=== PATIENT | female | born 1965 | race Caucasian/White ===

== ENCOUNTER 2019-06-12 17:08 | Observation (INO) | payer OTHER ==
[~2019-06-12] VITALS: Ht 165.1 cm; Wt 82.6 kg
[2019-06-12 17:29] VITALS: Ht 165.1 cm; Wt 82.6 kg
[2019-06-12 18:47] LABS: BASOPHIL % 0.9 % (0-2); PLATELET COUNT 383 x10^3mcL (130-400)
[2019-06-12 19:01] LABS: CALCIUM 8.4 mg/dL (8.5-10.1); CARBON DIOXIDE 29.3 mmol/L (21-32); CHLORIDE SERUM 101 mmol/L (98-107); CREATININE SERUM 0.8 mg/dL (0.6-1.0); GFR1 > 60 mL/min; GLUCOSE SERUM 98 mg/dL (74-106); POTASSIUM SERUM 3.8 mmol/L (3.5-5.1); SODIUM SERUM 137 mmol/L (136-145)
[2019-06-12 19:06] LABS: ALBUMIN 3.9 g/dL (3.4-5.0); ALKALINE PHOSPHATASE 68 U/L (46-116); ALT/SGPT 34 U/L (14-59); AST/SGOT 33 U/L (15-37); BILIRUBIN TOTAL 0.24 mg/dL (0.20-1.00); TOTAL PROTEIN, SERUM 7.6 g/dL (6.4-8.2)
[2019-06-12] MEDS ORDERED: ESCITALOPRAM10 M1 PO (21:03)
[2019-06-12] MEDS ORDERED: GABAPENTIN100 M2 (21:03)
[2019-06-12] MEDS ORDERED: ENDOCET1 TA4 PO (21:04)
[2019-06-12] MEDS ORDERED: IBUPROFEN400 MG PO (21:05)
[2019-06-13 00:23] VITALS: BP 132/57
[2019-06-13 04:51] VITALS: BP 122/62
[2019-06-13 07:11] LABS: BASOPHIL % 0.6 % (0-2); PLATELET COUNT 348 x10^3mcL (130-400)
[2019-06-13 07:13] LABS: RED CELL DISTRIBUTION WIDTH 17.1 % (11.5-14.5)
[2019-06-13 07:34] LABS: CALCIUM 8.2 mg/dL (8.5-10.1); CARBON DIOXIDE 27.5 mmol/L (21-32); CHLORIDE SERUM 102 mmol/L (98-107); CREATININE SERUM 0.6 mg/dL (0.6-1.0); GFR1 > 60 mL/min; GLUCOSE SERUM 94 mg/dL (74-106); SODIUM SERUM 137 mmol/L (136-145)
[2019-06-13 08:39] VITALS: BP 122/40
[2019-06-13 12:36] VITALS: BP 128/63
== END 2019-06-13 14:49 | disposition home or self-care (01) ==
LOC: ED 17:08 → DU 22:38
PROVIDERS: Emergency Medicine; Internal Medicine; ADMIT Internal Medicine Pulmonary Disease
DX: R07.89 Other chest pain (principal); F41.0 Panic disorder [episodic paroxysmal anxiety]; M54.9 Dorsalgia, unspecified; G89.29 Other chronic pain
CPT/HCPCS: G0378; J1885; J2060; J2405; Q0092

== ENCOUNTER 2020-02-18 15:49 | Observation (INO) | payer OTHER ==
[~2020-02-18] VITALS: Ht 162.6 cm; Wt 95.7 kg
[~2020-02-18 15:49] MED LIST: ENDOCET1 TA4 PO; ESCITALOPRAM10 M1 PO; GABAPENTIN100 M2; IBUPROFEN400 MG PO
[2020-02-18 15:58] VITALS: Ht 162.6 cm; Wt 95.7 kg
--- NOTE | 2020-02-18 16:01 | NUR ---
EKG IN PROGRESS.
[2020-02-18 17:04] LABS: BASOPHIL % 1.2 % (0-2); PLATELET COUNT 325 x10^3mcL (130-400)
[2020-02-18 17:05] LABS: RED CELL DISTRIBUTION WIDTH 15.6 % (11.5-14.5)
[2020-02-18 17:16] LABS: CALCIUM 8.8 mg/dL (8.5-10.1); CARBON DIOXIDE 38.1 mmol/L (21-32); CHLORIDE SERUM 97 mmol/L (98-107); GFR1 > 60 mL/min; GLUCOSE SERUM 115 mg/dL (74-106); SODIUM SERUM 137 mmol/L (136-145)
[2020-02-18 17:21] LABS: ALBUMIN 3.9 g/dL (3.4-5.0); ALKALINE PHOSPHATASE 74 U/L (46-116); ALT/SGPT 61 U/L (14-59); AST/SGOT 36 U/L (15-37); TOTAL PROTEIN, SERUM 7.7 g/dL (6.4-8.2)
--- NOTE | 2020-02-18 17:32 | NUR ---
PLACED IN BED 7 FOR EVAL.
--- NOTE | 2020-02-18 17:41 | NUR ---
PT BIB SON C/O CHEST PAIN 7/10 X 4DAYS THAT RADIATES TO JAW AND NECK. PER PT "I WAS SITTING DOWN TXTING AND I NOTICED THE PAIN BUT ITS WORSE NOW. I ALSO HAD A TOOTH INFECTION AND I TOOK ANITBIOTICS FOR IT SO THAT WHY I HAVE DIARRHEA". PT AAOX4, RESP E/U, PLACED ON FULL CM, NSR NOTED. MD SALAZAR AT BEDSIDE FOR EVAL AT THIS TIME. AWAITING FURTHER ORDERS. WILL CONTINUE TO MONITOR.
--- NOTE | 2020-02-18 18:04 | NUR ---
ASSISTED PT RESTROOM. PT AMBULATORY WITH STEADY GAIT AT THIS TIME. NO AD NOTED. WILL CONTINUE TO MONITOR.
[2020-02-18 18:08] LABS: LIPASE 103 IU/L (73-393)
[2020-02-18 18:09] LABS: CHOLESTEROL 275 mg/dL (<200); HDL CHOLESTEROL 89 mg/dL (40-60)
[2020-02-18 18:29] LABS: microscopic required? NO
[2020-02-18 18:51] LABS: urine erythrocyte NEGATIVE (NEGATIVE)
[2020-02-18 19:00] LABS: AMPHETAMINE QUAL UR NONE DETECTED (See below)
--- NOTE | 2020-02-18 19:00 | NUR ---
PT NOTED SITTING UPRIGHT IN ER LIZABETH TUCKER AT THIS TIME, NO AD NOTED. WILL CONTINUE TO MONITOR.
--- NOTE | 2020-02-18 19:07 | NUR ---
REPORT GIVEN TO TERESITA HOGUE. RN TO ASSUME CARE OF PT AT THIS TIME.
--- NOTE | 2020-02-18 19:42 | NUR ---
PT RESTING IN BED USING PHONE WITH NO SIGNS OF DISTRESS.
--- NOTE | 2020-02-18 20:44 | NUR ---
PT RESTING IN BED WITH NO SIGNS OF DISTRESS.
--- NOTE | 2020-02-18 21:18 | NUR ---
PT REQUESTING MEDICATION FOR NAUSEA AND GARCIA. [facility] CALLED FOR [employer]GER. PT ALSO STATING SHE IS NOT SURE SHE WANTS TO STAY. WILL INFORM
--- NOTE | 2020-02-18 21:56 | NUR ---
REPAGING DR RAE REGARDING PAIN MEDICATION. PT REFUSED TYLENOL ORDER FOR GARCIA.
[2020-02-18 22:02] LABS: MAGNESIUM 2.6 mg/dL (1.8-2.4)
[2020-02-18 22:21] LABS: CHOLESTEROL/HDL RATIO 3.2
--- NOTE | 2020-02-18 22:52 | NUR ---
PT RESTING IN BED WITH NO SIGNS OF DISTRESS.
--- NOTE | 2020-02-18 23:55 | NUR ---
PT NOTED TO BE SLEEPING IN BED WITH BREATHS EVEN AND UNLABORED.
--- NOTE | 2020-02-19 00:08 | NUR ---
ABOVE NOTED DONE BY MYSELF.
--- NOTE | 2020-02-19 00:08 | NUR ---
PT NOTED TO BE SLEEPING WITH NO BREATHS EVEN AND UNLABORED.
--- NOTE | 2020-02-19 02:18 | NUR ---
PT RESTING ON GURNEY IN POSITION OF COMFORT. NO S/S OF DISTRESS. RESP E/U. WILL CONTINUE TO MONITOR.
--- NOTE | 2020-02-19 03:09 | NUR ---
PT SLEEPING ON GURNEY, VISIBLE CHEST RISE AND FALL. NO S/S OF DISTRESS. RESP E/U. WILL CONTINUE TO MONITOR.
--- NOTE | 2020-02-19 04:45 | NUR ---
PT AMBULATED TO RESTROOM W/STEADY GAIT. PT STS SHE WOKE UP AND IS HAVING A TERRIBLE HEADACHE. NO S/S OF DISTRESS. RESP E/U. WILL CONTINUE TO MONITOR.
--- NOTE | 2020-02-19 05:10 | NUR ---
PT MEDICATED PER ORDER. PT VERBALIZED UNDERSTANDING OF MEDICATION TEACHING. PT PROVIDED VANILLA PUDDING AND A BLANKET FOR COMFORT. NO S/S OF DISTRESS. RESP E/U. WILL CONTINUE TO MONITOR.
--- NOTE | 2020-02-19 06:59 | NUR ---
PT LAYING ON GURNEY IN POSITION OF COMFORT. NO S/S OF DISTRESS. RESP E/U. WILL CONTINUE TO MONITOR.
[2020-02-19 08:17] VITALS: BP 144/66
--- NOTE | 2020-02-19 08:50 | NUR ---
RECEIVED PATIENT ALERT AND ORIENTED TIMES FOUR. PATIENT AHS BEEN WITH PAIN AND NAUSEA SINCE FOUR DAYS. ATTRIBUTES THIS TO TAKING OXY FOR PAIN AND BEING CONSTIPATED. ARAMIS ESPINOZA SANY SYMPTOMS OF COVID AND HAS BEEN AMBULATORY. SHE HAS IV INTACDT AND HAD RECEIVED MEDICATION FOR CHEST PAIN IN THE ER. SHE DOES NOT HAVE ANY LAB, EKG OR CHEST XRAY THAT INDICATED CARDIAC ISSUES. PATIENT HAS VITALS AT THIS TIME AT 144/66, 98 MAP, 58, 20, 98% ON ROOM AIR. PATIENT AHS HISTORY OF C SECTIONS TIMES TWO, OA, HIP BILATERAL AND KNEE BILATERAL SURGERIES. SHE HAS HIGH CHOLESTEROL AND OBESITY. SHE IS ALSO SEEING AT [facility] FOR DEPRESSION. SHE WAS SEEN IN [facility] ABOUT THREE WEEKS AGO FOR CHEST PAIN WELL. LAST BM WAS ON 02/13 AND SHE STATES SHE IS CONSTIPATED AND WITH NAUSEA. NO VOMITING NOTED. KARISSA AHUJA NOTED KATY OF [address] AND [employer] [facility] ON ANEMIA. SHE DOES NOT SHANTHI MORPHINE FOR PAIN SHE STATES IT DOES NOT WORK FOR HER. SHE HAS NO KNOWN ALLERGIES. TASSEL CLIPPER IS HER SON JAY HERNANDEZ [phone].
[2020-02-19] MEDS ORDERED: COL100 PO (10:29)
[2020-02-19] MEDS ORDERED: TUMS PO (10:29)
[2020-02-19] MEDS ORDERED: MIRUD PO (10:29)
[2020-02-19] MEDS ORDERED: PRI20 PO (10:30)
--- NOTE | 2020-02-19 10:46 | NUR ---
OFFERED AND GAVE PERCOCET AND ZOFRAN FOR NAUSEA AND PAIN. SHE IS RESTING QUIETLY AT THIS TIME.
[2020-02-19 12:56] VITALS: BP 142/73
[2020-02-19 13:00] VITALS: BP 142/73
--- NOTE | 2020-02-19 13:07 | NUR ---
PATIENT GIVEN LACTULOSE AND ZOFRAN. SHE WANTS SOMETHING FOR MIGRAINE BUT RECUSED THE PERCOCET. WILL OFFER TORADOL FOR THE HEADACHE AND SEE IF EFFECITVE.
--- NOTE | 2020-02-19 13:12 | NUR ---
RECEIVED DISCHARGE PAPERWORK FOR RTHE PATIENT NOTHIGN WAS FOUND FOR HER TO CONTINUE AT THIS LEVEL OF CARE. WILL ADVISE.
[2020-02-19 13:33] VITALS: BP 142/73
== END 2020-02-19 16:55 | disposition home or self-care (01) ==
LOC: ED 15:49 → DU 19:25
PROVIDERS: Emergency Medicine; ADMIT Internal Medicine; ATTEND Internal Medicine
DX: R07.89 Other chest pain (principal); M54.2 Cervicalgia; G89.29 Other chronic pain; I10 Essential (primary) hypertension; E78.5 Hyperlipidemia, unspecified; R11.2 Nausea with vomiting, unspecified
CPT/HCPCS: 83880; G0378; J1885; J2405

== ENCOUNTER 2020-02-23 17:52 | Emergency (ER) | payer OTHER ==
[~2020-02-23] VITALS: Ht 165.1 cm; Wt 97.5 kg
[~2020-02-23 17:52] MED LIST changes: +COL100 PO; +MIRUD PO; +PRI20 PO; +TUMS PO
[2020-02-23 18:12] VITALS: Ht 165.1 cm; Wt 97.5 kg
[2020-02-23 19:11] LABS: PLATELET COUNT 340 x10^3mcL (130-400)
[2020-02-23 19:12] LABS: BASOPHIL % 2.1 % (0-2); RED CELL DISTRIBUTION WIDTH 15.8 % (11.5-14.5)
[2020-02-23 19:50] LABS: CALCIUM 9.4 mg/dL (8.5-10.1); CARBON DIOXIDE 37.7 mmol/L (21-32); CHLORIDE SERUM 97 mmol/L (98-107); CREATININE SERUM 0.8 mg/dL (0.6-1.0); GFR1 > 60 mL/min; GLUCOSE SERUM 111 mg/dL (74-106); POTASSIUM SERUM 3.9 mmol/L (3.5-5.1); SODIUM SERUM 136 mmol/L (136-145)
[2020-02-23 19:55] LABS: ALBUMIN 3.8 g/dL (3.4-5.0); ALKALINE PHOSPHATASE 64 U/L (46-116); ALT/SGPT 44 U/L (14-59); AST/SGOT 27 U/L (15-37); BILIRUBIN TOTAL 0.3 mg/dL (0.20-1.00); TOTAL PROTEIN, SERUM 7.8 g/dL (6.4-8.2)
[2020-02-23 20:00] VITALS: BP 174/90
== END 2020-02-23 20:41 | disposition home or self-care (01) ==
LOC: ED 17:52
PROVIDERS: Emergency Medicine
DX: R07.89 Other chest pain (principal); R11.0 Nausea; E78.00 Pure hypercholesterolemia, unspecified
CPT/HCPCS: J1885; Q0092